=== PATIENT | female | born 1960 | race Caucasian/White ===

== ENCOUNTER → 2017-11-26 | Outpatient (CLI) | payer OTHER ==
[2017-11-26 13:08] LABS: BASO % 0.4 %; BASO ABS # 0.06 K/uL (0-0.2); EOS % 1.4 %; HEMOGLOBIN 14.2 g/dL (12.0-16.0); IG# 0.04 K/uL (0.00-0.02); LYMPH % 19.3 %; MEAN CORPUSCULAR HEMOGLOBIN 28.1 pg (25-34); MEAN CORPUSCULAR HGB CONC 33.8 g/dl (32-36); MEAN PLATELET VOLUME 10.3 fL (7.4-10.4); MONO % 7.7 %; MONO ABS # 1.07 K/uL (0.11-0.59); NEUT % 70.9 %; PLATELET COUNT 373 K/uL (130-400); RED CELL DISTRIBUTION WIDTH CV 13.1 % (11.5-14.5); RED CELL DISTRIBUTION WIDTH SD 39.3 fL (36.4-46.3); WHITE BLOOD COUNT 13.97 K/uL (4.8-10.8)
[2017-11-26 13:58] LABS: ALBUMIN 3.8 gm/dl (3.4-5.0); ALT/SGPT 20 U/L (12-78); BLOOD UREA NITROGEN 14 mg/dl (7-18); CALCIUM 10.1 mg/dl (8.5-10.1); CARBON DIOXIDE 30 mmol/L (21-32); CREATININE 0.83 mg/dl (0.60-1.20); GLUCOSE 151 mg/dl (70-99); POTASSIUM 3.6 mmol/L (3.5-5.1); SODIUM 130 mmol/L (136-145)
[2017-11-26 14:01] LABS: ALKALINE PHOSPHATASE 97 U/L (45-117); AST/SGOT 10 U/L (15-37); CHOLESTEROL 127 mg/dl (0-200); LDL CHOLESTEROL CALCULATED 35 mg/dl; TOTAL PROTEIN 7.5 gm/dl (6.4-8.2)
[2017-11-27 07:21] LABS: HEMOGLOBIN A1C 6.9 % (4.5-5.6)
== END | disposition home or self-care (01) ==
LOC: C.LABMFLN 10:25
PROVIDERS: ATTEND Family Medicine
DX: E11.40 Type 2 diabetes mellitus with diabetic neuropathy, unspecified (principal); I10 Essential (primary) hypertension; E78.5 Hyperlipidemia, unspecified